=== PATIENT | male | born 1955 | race Native Hawaiian/Other Pacific Islander ===

== ENCOUNTER 2017-01-11 20:19 | Inpatient (IN) | payer SELFPAY ==
[2017-01-11] MEDS ORDERED: SODIUM CHLOR 0.9% 1000 ML INJ 1,000 ML IV SCH (20:20)
[2017-01-11 20:24] VITALS: BP 83/53; PULSE 63; RESP 18; TEMP 98.6; O2SAT 100
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
[2017-01-11] MEDS ORDERED: SODIUM CHLORIDE 0.9% FLUSH 5 ML FLUSH IV FLUSH PRN (20:30)
--- NOTE | 2017-01-11 20:43 | RADRPT ---
EXAM DATE/TIME: 01/11/2017 20:18 [facility] COMPARISON: No previous studies available for comparison. EXTERNAL COMPARISON : INDICATIONS : Syncope MEDICAL HISTORY : Cardiovascular disease. SURGICAL HISTORY : CABG. ENCOUNTER: Initial ACUITY: 1 day PAIN SCORE: 0/10 LOCATION: chest FINDINGS: No infiltrate, effusion or pneumothorax. Heart size within normal limits. Patient has had previous me kathrine sternotomy. CONCLUSION: No acute abnormality demonstrated. Alfonso Lee MD on January 11, 2017 at 20:41 Board Certified Radiologist. This report was verified electronically.
[2017-01-11 21:07] LABS: AUTOMATED NEUTROPHIL # 3.5 TH/MM3 (1.8-7.7); BASOPHIL % 0.9 % (0.0-2.0); EOSINOPHIL % 0.6 % (0.0-4.0); HEMO FLAGS DIFF FINAL; LYMPH % 21.2 % (9.0-44.0); LYMPHOCYTE # 1.1 TH/MM3 (1.0-4.8); MEAN CORPUSCULAR HEMOGLOBIN 35.9 PG (27.0-34.0); MEAN CORPUSCULAR HGB CONC 34.9 % (32.0-36.0); MONO % 8.2 % (0.0-8.0); NEUT % 69.1 % (16.0-70.0); PLATELET COUNT 138 TH/MM3 (150-450); RED BLOOD COUNT 3.59 MIL/MM3 (4.50-5.90)
--- NOTE | 2017-01-11 21:17 | PD ---
Physical Exam Narrative General: The patient is a thin-appearing male, drowsy on examination, slow to answer questions, blood pressure initially on my arrival is 89 systolic, however during further discussions with the patient the repeat blood pressure is 76 systolic.. Head and Neck exam: Head is normocephalic atraumatic. Eyes: EOMI, pupils are equal round and reactive to light. Nose: Midline septum with pink mucous membranes Mouth: Dentition unremarkable. Moist mucus membranes. Posterior oropharynx is not erythematous. No tonsillar hypertrophy. Uvula midline. Airway patent. Neck: No palpable lymphadenopathy. No nuchal rigidity. No thyromegaly. Cardiovascular: Regular rate and rhythm without murmurs, gallops, or rubs. Lungs: Clear to auscultation bilaterally. No wheezes, rhonchi, or rales. Abdomen: Soft, without tenderness to palpation in all 4 quadrants of the abdomen. No guarding, rebound, or rigidity. Normal bowel sounds are audible. No tenderness on palpation of McBurney's point. Extremities: No clubbing, cyanosis, or edema. Back: No costovertebral angle tenderness to palpation. Neurologic Exam: Cranial nerves 2-12 were intact on exam. Strength is 4/5 in all 4 extremities related to generalized weakness from hypotension. No sensory deficits noted. The patient is oriented to person, and time, however not place or situation. Skin Exam: No rash noted. Intact skin that is warm and dry. Data Data Last Documented VS Vital Signs Date Time Temp Pulse Resp B/P Pulse Ox O2 Delivery O2 Flow Rate FiO2 01/11/17 20:24 98.6 63 18 83/53 100 Orders Electrocardiogram (01/11/17 20:20) Ammonia (01/11/17 20:20) Complete Blood Count With Diff (01/11/17 20:20) Comprehensive Metabolic Panel (01/11/17 20:20) Creatine Kinase (Cpk) (01/11/17 20:20) Prothrombin Time / Inr (Pt) (01/11/17 20:20) Act Partial Throm Time (Ptt) (01/11/17 20:20) Troponin I (01/11/17 20:20) Thyroid Stimulating Hormone (01/11/17 20:20) Urinalysis - C+S If Indicated (01/11/17 20:20) Lactic Acid Sepsis Protocol (01/11/17 20:20) Blood Culture (01/11/17 20:20) Chest, Single Ap (01/11/17 20:20) Ct Brain W/O Iv Contrast(Rout) (01/11/17 20:20) Blood Glucose (01/11/17 20:20) Ecg Monitoring (01/11/17 20:20) Iv Access Insert/Monitor (01/11/17 20:20) Oximetry (01/11/17 20:20) Sodium Chloride 0.9% Flush (Ns Flush) (01/11/17 20:30) Sodium Chlor 0.9% 1000 Ml Inj (Ns 1000 M (01/11/17 20:20) Drug Screen, Random Urine (01/11/17 20:20) Alcohol (Ethanol) (01/11/17 20:20) Tylenol (Acetaminophen) (01/11/17 20:20) Salicylates (Aspirin) (01/11/17 20:20) Resp Blood Gas Venous (01/11/17 ) Ct Cerv Spine W/O Contrast (01/11/17 ) Labs Laboratory Tests Test 01/11/17 20:40 White Blood Count 5.0 TH/MM3 Red Blood Count 3.59 MIL/MM3 Hemoglobin 12.9 GM/DL Hematocrit 37.0 % Mean Corpuscular Volume 103.0 FL Mean Corpuscular Hemoglobin 35.9 PG Mean Corpuscular Hemoglobin 34.9 % Concent Red Cell Distribution Width 15.0 % Platelet Count 138 TH/MM3 Mean Platelet Volume 7.6 FL Neutrophils (%) (Auto) 69.1 % Lymphocytes (%) (Auto) 21.2 % Monocytes (%) (Auto) 8.2 % Eosinophils (%) (Auto) 0.6 % Basophils (%) (Auto) 0.9 % Neutrophils # (Auto) 3.5 TH/MM3 Lymphocytes # (Auto) 1.1 TH/MM3 Monocytes # (Auto) 0.4 TH/MM3 Eosinophils # (Auto) 0.0 TH/MM3 Basophils # (Auto) 0.0 TH/MM3 CBC Comment DIFF FINAL Differential Comment MDM Medical Record Reviewed: Yes Supervised Visit with YANELY: No Narrative Course During the course of the patients emergency department visit, the patients history, examination, and differential diagnosis were reviewed with the patient. The patient was initially seen by Dr. Escamilla. He requested that I in addition evaluate the patient is a patient was refusing all care. Upon my arrival to the room the patient reports that he does need to move his bowels. I explained that he would need to use a bedside commode due to his generalized weakness and hypotension. The patient was agreeable with this plan. I assisted him with the help of the nurse to the bedside commode. The patient had a loose stool was brown in color. No mucus or blood. On further questioning, the patient reports that he is traveling. He denies having any known destination. The patient reports that he does not want any additional evaluation, however the patient on examination is altered. The patient is unable to state why he thinks that everything will be fine. The patient's line of reasoning as flawed. I am concerned for his safety and his health based on his examination. I agree that at this point additional evaluation needs to be done as the patient at this point is not of sound mind to be able to refuse care and without care of the patient will likely get much sicker. When I explained to the patient that he does require additional evaluation as he seems to be confused, hypotensive and reports having shortness of breath although he denies chest pain currently. He reports "go ahead and waste your time. I don't care." Diagnosis Primary Impression: Altered mental status Qualified Code: R41.0 - Disorientation Additional Impressions: Hypotension Qualified Code: I95.9 - Hypotension, unspecified hypotension type Nausea, vomiting, and diarrhea Admitting Information Admitting Physician Requests: Admit Gifty Wood MD Jan 11, 2017 21:17
[2017-01-11 21:22] LABS: APTT (PATIENT) 24.1 SEC (24.3-30.1); INTERNATIONAL NORMALIZED RATIO 1.4 RATIO; PROTHROMBIN TIME - PATIENT 15.2 SEC (9.8-11.6)
[2017-01-11 21:28] VITALS: O2SAT 100
[2017-01-11 21:28] LABS: ANION GAP 11 MEQ/L (5-15)
[2017-01-11 21:37] LABS: ACETAMINOPHEN LESS THAN 2.0 MCG/ML (10.0-30.0); ALKALINE PHOSPHATASE 78 U/L (45-117); ALT (GPT) 10 U/L (12-78); AST (GOT) 43 U/L (15-37); BLOOD UREA NITROGEN 12 MG/DL (7-18); CHLORIDE 107 MEQ/L (98-107); CREATINE KINASE 362 U/L (39-308); GLOMERULAR FILTRATION RATE 64 ML/MIN (>89); POTASSIUM 3.1 MEQ/L (3.5-5.1); SODIUM (NA) 138 MEQ/L (136-145); TOTAL BILIRUBIN ADULT 0.5 MG/DL (0.2-1.0)
[2017-01-11 21:41] LABS: CALCIUM-PROTEIN CORRECTED 7.1 MG/DL (8.5-10.1)
[2017-01-11 21:55] LABS: BLOOD GAS VENOUS BASE EXCESS -4.8 mmol/L (-2-2); BLOOD GAS VENOUS HCO3 20 mmol/L (22-26); BLOOD GAS VENOUS O2 CONTENT 7.8 Vol % (9.0-17.0); BLOOD GAS VENOUS O2 HGB SAT 40 % (70-76); BLOOD GAS VENOUS PCO2 35 mmHg (44-48); BLOOD GAS VENOUS PO2 29 mmHg (35-40); BLOOD GAS VENOUS pH 7.37 (7.360-7.400); TEMP CORR TO 98.6
[2017-01-11 21:56] LABS: CRITICAL VALUE YES; DRAW SITE RN DRAW; FIO2 21 %; OXYGEN DEVICE ROOM AIR
[2017-01-11] MEDS ORDERED: CALCIUM GLUCONATE INJ 2 GM in DEXTROSE 5% IN WATER 100ML INJ 100 ML IV ONE ×2 (22:00)
[2017-01-11 22:03] LABS: CKMB 2.9 NG/ML (0.5-3.6)
[2017-01-11 22:15] VITALS: BP 95/57; PULSE 60; RESP 17; O2SAT 98
[2017-01-11 22:47] VITALS: BP 102/60; PULSE 58; RESP 18; O2SAT 98
[2017-01-11 23:00] LABS: LACTIC ACID GHOST NOT REPORTABLE
[2017-01-11 23:35] VITALS: BP 114/65; PULSE 61; RESP 19; O2SAT 98
[2017-01-12 00:45] LABS: CKMB 5.2 NG/ML (0.5-3.6)
[2017-01-12] MEDS ORDERED: POTASSIUM CHLORIDE 20 MEQ CONTROLLED RELEASE TAB PO ONE (02:00)
[2017-01-12] MEDS ORDERED: SODIUM CHLORIDE 0.9% FLUSH 10 ML FLUSH IV FLUSH PRN (02:00)
[2017-01-12] MEDS ORDERED: NALOXONE HCL 0.4 MG/ML AMP IV PRN (02:00)
--- NOTE | 2017-01-12 02:56 | HHI.HP ---
HPI Service [facility] Primary Care Physician Unknown Admission Diagnosis Altered Mental Status. Syncope. Diagnoses: Chief Complaint: vomiting, near syncope, hypotension Travel History International Travel<30 Days: No Contact w/Intl Traveler <30 Da: No Traveled to Known Affected Are: No Sepsis Criteria Criteria Outcome: Meets sepsis criteria History of Present Illness Written by ROLA Farias acting as scribe for [Juan Ramon] on 01/12/17 at 02: 28. 61 y/o male with a history of HTN, CAD, CABG, kidney stones and CVA was brought in to the ED by EMS after being found in his car confused, hypotensive and with vomit on himself. He was does not remember the events prior to coming to the hospital. The last thing he remembers is making coffee and getting in his car, he states he did not eat breakfast or lunch. He has been having chills and after he gets the chills he vomits and has associated heartburn. He states this has been going on for the past 3 months. He denies passing out, chest pain, palpitations, radiation with the heartburn. He states today he began to have diarrhea 4-5 times while at the hospital, and he had sharp abdominal pain with vomiting. Vomiting is coffee ground in color. Denies any black or red colored stools. He does have sob, and he is a smoker and he states he has been smoking more the past few weeks due to stress. No edema or pain in calf with the sob. He had a fall in May and had bleeding on the brain, and was instructed not to take any blood thinners or blood pressure medications. Only medication he does take is a OTC sleeping pill at night. Patient is from [facility] and has not followed up with a DrLucy since May. No local family members, he states he is just passing through. He started his trip here and he was in the car for 12 hrs. Patient is refusing any procedures or tests. The most he will do is blood test. He does not want an endoscopy, stress test, CTA. He states he does not need it and he would rather talk to his brother in law who is a computer salesperson retail and he will see a Dr. when he gets back to [facility] Dr. Jorge Jalloh at [facility] Review of Systems Except as stated in HPI: all other systems reviewed are Neg Past Family Social History Past Medical History HTN CAD CA kidney stones CVA Past Surgical History CABG Cystoscopy Allergies: Coded Allergies: UNOBTAINABLE (Unverified , 01/11/17) Active Ordered Medications Current Medications Medications (Trade) Dose Ordered Sig/Dillon Route Start Time Stop Time Status Last Admin (NS Flush) 2 ml UNSCH PRN IV FLUSH 01/12/17 02:00 (NS Flush) 2 ml BID IV FLUSH 01/12/17 09:00 Naloxone HCl 0.4 mg 0.4 mg UNSCH PRN IV 01/12/17 02:00 (KCl 20 Meq Premix Inj) 100 ml @ 50 mls/hr Q2H IV 01/12/17 02:00 01/12/17 05:59 Family History Mom: Kidney stones Social History Tobacco use: 1 1/2 PPD since age 18 Alcohol use: Occasionally Illicit drug use: Denies Physical Exam Vital Signs Vital Signs Date Time Temp Pulse Resp B/P Pulse Ox O2 Delivery O2 Flow Rate FiO2 01/11/17 23:35 61 19 114/65 98 Room Air 01/11/17 22:47 58 18 102/60 98 Room Air 01/11/17 22:15 60 17 95/57 98 Room Air 01/11/17 21:28 100 Nasal Cannula 2 01/11/17 20:24 98.6 63 18 83/53 100 Physical Exam GENERAL: This is a well-nourished, well-developed patient, in no apparent distress. Not very cooperative with care SKIN: No rashes, ecchymoses or lesions. Cool and dry. HEAD: Atraumatic. Normocephalic. EYES: Pupils equal round and reactive. Extraocular motions intact. ENT: Nose without bleeding, purulent drainage or septal hematoma. Airway patent. NECK: Trachea midline. No JVD or lymphadenopathy. CARDIOVASCULAR: Irregular rate and rhythm without murmurs, gallops, or rubs. RESPIRATORY: Clear to auscultation. Breath sounds equal bilaterally. No wheezes , rales, or rhonchi. GASTROINTESTINAL: Abdomen soft, non-tender, nondistended. No hepato-splenomegaly , or palpable masses. No guarding. MUSCULOSKELETAL: Extremities without clubbing, cyanosis, or edema. No joint tenderness, effusion, or edema noted. No calf tenderness. NEUROLOGICAL: Awake and alert. Motor and sensory grossly within normal limits. Normal speech. Laboratory Laboratory Tests Test 01/11/17 01/11/17 01/11/17 20:40 21:19 23:45 White Blood Count 5.0 Red Blood Count 3.59 Hemoglobin 12.9 Hematocrit 37.0 Mean Corpuscular Volume 103.0 Mean Corpuscular Hemoglobin 35.9 Mean Corpuscular Hemoglobin 34.9 Concent Red Cell Distribution Width 15.0 Platelet Count 138 Mean Platelet Volume 7.6 Neutrophils (%) (Auto) 69.1 Lymphocytes (%) (Auto) 21.2 Monocytes (%) (Auto) 8.2 Eosinophils (%) (Auto) 0.6 Basophils (%) (Auto) 0.9 Neutrophils # (Auto) 3.5 Lymphocytes # (Auto) 1.1 Monocytes # (Auto) 0.4 Eosinophils # (Auto) 0.0 Basophils # (Auto) 0.0 CBC Comment DIFF FINAL Differential Comment Prothrombin Time 15.2 Prothromb Time International 1.4 Ratio Activated Partial 24.1 Thromboplast Time Sodium Level 138 Potassium Level 3.1 Chloride Level 107 Carbon Dioxide Level 20.0 Anion Gap 11 Blood Urea Nitrogen 12 Creatinine 1.16 Estimat Glomerular Filtration 64 Rate Random Glucose 97 Lactic Acid Level 2.6 1.8 Calcium Level 6.2 Protein Corrected Calcium 7.1 Total Bilirubin 0.5 Aspartate Amino Transf 43 (AST/SGOT) Alanine Aminotransferase 10 (ALT/SGPT) Alkaline Phosphatase 78 Ammonia 49 Total Creatine Kinase 362 480 Creatine Kinase MB 2.9 5.2 Creatine Kinase MB % 0.8 1.1 Troponin I 0.02 0.02 Total Protein 5.1 Albumin 2.3 Thyroid Stimulating Hormone 1.860 3rd Gen Salicylates Level LESS THAN 1.7 Acetaminophen Level LESS THAN 2.0 Ethyl Alcohol Level 93 B-Type Natriuretic Peptide 79 Blood Gas Puncture Site RN DRAW Blood Gas Patient Temperature 98.6 Venous Blood pH 7.37 Venous Blood Partial Pressure 35 CO2 Venous Blood Partial Pressure 29 O2 Venous Blood HCO3 20 Venous Blood Oxygen Saturation 40 Venous Blood Oxygen Content 7.8 Venous Blood Base Excess -4.8 Oxygen Delivery Device ROOM AIR Blood Gas Inspired Oxygen 21 Date/Time Procedure Status Source Growth 01/11/17 20:40 Aerobic Blood Culture Received Blood Peripheral Pending 01/11/17 20:40 Anaerobic Blood Culture Received Blood Peripheral Pending Result Diagram: 01/11/17203901/11/172039 Imaging Last Impressions Chest X-Ray 01/11/172019 Signed Impressions: Service Date/Time: Wednesday, January 11, 2017 20:18 - CONCLUSION: No acute abnormality demonstrated. Alfonso Lee MD Assessment and Plan Problem List: (1) Hypocalcemia ICD Code: E83.51 Status: Acute (2) Vomiting ICD Code: R11.10 Status: Acute (3) Hypotension ICD Code: I95.9 Status: Acute (4) Hypokalemia ICD Code: E87.6 Status: Acute (5) Near syncope ICD Code: R55 Status: Acute Assessment and Plan 61 y/o male with a history of HTN, CAD, CABG, kidney stones and CVA was brought in to the ED by EMS after being found in his car confused, hypotensive and with vomit on himself. He was does not remember the events prior to coming to the hospital. Lactic acidosis suspected due to vomiting and volume loss, coffee ground, possible bleeding ulcer Lactic acid 2.6-->1.8, 1L ns given in ED -Protonix drip -Will order GI consult once patient agrees Hypokalemia, hypomagnesium and hypocalcemia, potassium 3.1, protein corrected ca 7.1, magnesium 1.4 -Supplementation ordered -Labs in a.m., replace as needed Dysrhythmia, with elevated d-dimer, will need to rule out PE if patient allows EKG reviewed and shows T wave inversion in lateral leads. D-dimer 2.4, CK 480, troponin 0.02 -CTA is ordered, patient is refusing -Serial EKGs and troponin -Monitor telemetry -Will order cardiology consult when patient agrees Near syncope, likely due to underlining dysrhythmias -Continue neuro checks DVT prophylaxis: SCDs Discussed Condition With Patient, RN and ED physician Problem Qualifiers (1) Hypotension: Qualified Code: I95.9 - Hypotension, unspecified hypotension type Nita Pena Jan 12, 2017 02:56 Thang Delatorre MD Jan 12, 2017 06:06
[2017-01-12 03:00] VITALS: BP 132/79; PULSE 71; RESP 18; O2SAT 99
[2017-01-12] MEDS: POTASSIUM CHLOR 20 MEQ PREMIX 100 ML IV SCH ×2 (03:54→04:00)
[2017-01-12] MEDS ORDERED: MAGNESIUM OXIDE 400 MG TAB PO ONE (04:15)
--- NOTE | 2017-01-12 05:06 | EKG ---
Date Performed: 01/11/2017 Time Performed: 20:22:36 PTAGE: 61 years EKG: SINUS BRADYCARDIA POSSIBLE LEFT ATRIAL ENLARGEMENT BORDERLINE RIGHT AXIS DEVIATION ANTERIOR MYOCARDIAL INFARCTION possible INFERIOR MYOCARDIAL INFARCTION Nonspecific T wave changes Prolonged Q T interval NO PREVIOUS TRACING DOCTOR: Joshua Fernandes Interpretating Date/Time 01/12/2017 05:06:03
[2017-01-12] MEDS ORDERED: PANTOPRAZOLE INJ 80 MG in SODIUM CHLORIDE 0.9% INJ 100 ML IV SCH (05:15)
[2017-01-12] MEDS ORDERED: PANTOPRAZOLE INJ 80 MG in SODIUM CHLORIDE 0.9% INJ 35 ML IV ONE (05:15)
[2017-01-12] MEDS: MAGNESIUM SULFATE 1 GM PREMIX 100 ML IV SCH ×2 (05:15→06:17)
[2017-01-12 05:17] VITALS: BP 117/68; PULSE 67; RESP 20; TEMP 98.8; O2SAT 98
[2017-01-12 07:17] LABS: STAT YES
--- NOTE | 2017-01-12 07:38 | EKG ---
Date Performed: 01/11/2017 Time Performed: 22:07:37 PTAGE: 61 years EKG: SINUS BRADYCARDIA POSSIBLE LEFT ATRIAL ENLARGEMENT ANTERIOR MYOCARDIAL INFARCTION INFERIOR MYOCARDIAL INFARCTION Prolonged QT interval. Nonspecific SCT wave changes. Compared to prior tracing no significant change PREVIOUS TRACING : 01/11/2017 20.22 DOCTOR: Joshua Fernandes Interpretating Date/Time 01/12/2017 07:38:13
[2017-01-12] MEDS ORDERED: SODIUM CHLORIDE 0.9% FLUSH 10 ML FLUSH IV FLUSH SCH (09:00)
--- NOTE | 2017-01-12 10:54 | HHI.DS ---
Discharge Summary Admission Date Jan 11, 2017 at 23:57 Admitting Diagnosis Altered Mental Status. Syncope. (1) Hypocalcemia ICD Code: E83.51 (2) Vomiting ICD Code: R11.10 (3) Hypotension ICD Code: I95.9 (4) Hypokalemia ICD Code: E87.6 (5) Near syncope ICD Code: R55 Brief History - From Admission Written by ROLA Farias acting as scribe for [Juan Ramon] on 01/12/17 at 02: 28. 61 y/o male with a history of HTN, CAD, CABG, kidney stones and CVA was brought in to the ED by EMS after being found in his car confused, hypotensive and with vomit on himself. He was does not remember the events prior to coming to the hospital. The last thing he remembers is making coffee and getting in his car, he states he did not eat breakfast or lunch. He has been having chills and after he gets the chills he vomits and has associated heartburn. He states this has been going on for the past 3 months. He denies passing out, chest pain, palpitations, radiation with the heartburn. He states today he began to have diarrhea 4-5 times while at the hospital, and he had sharp abdominal pain with vomiting. Vomiting is coffee ground in color. Denies any black or red colored stools. He does have sob, and he is a smoker and he states he has been smoking more the past few weeks due to stress. No edema or pain in calf with the sob. He had a fall in May and had bleeding on the brain, and was instructed not to take any blood thinners or blood pressure medications. Only medication he does take is a OTC sleeping pill at night. Patient is from [facility] and has not followed up with a Dr. since May. No local family members, he states he is just passing through. He started his trip here and he was in the car for 12 hrs. Patient is refusing any procedures or tests. The most he will do is blood test. He does not want an endoscopy, stress test, CTA. He states he does not need it and he would rather talk to his brother in law who is a lasting room machine operator and he will see a Dr. when he gets back to [facility] Dr. Jorge Jalloh at [facility] CBC/BMP: 01/11/17203901/11/172039 Significant Findings Laboratory Tests Test 01/11/17 01/11/17 01/11/17 20:40 21:19 23:45 Red Blood Count 3.59 MIL/MM3 (4.50-5.90) Hemoglobin 12.9 GM/DL (13.0-17.0) Hematocrit 37.0 % (39.0-51.0) Mean Corpuscular Volume 103.0 FL (80.0-100.0) Mean Corpuscular Hemoglobin 35.9 PG (27.0-34.0) Platelet Count 138 TH/MM3 (150-450) Monocytes (%) (Auto) 8.2 % (0.0-8.0) Prothrombin Time 15.2 SEC (9.8-11.6) Activated Partial 24.1 SEC Thromboplast Time (24.3-30.1) Potassium Level 3.1 MEQ/L (3.5-5.1) Carbon Dioxide Level 20.0 MEQ/L (21.0-32.0) Estimat Glomerular Filtration 64 ML/MIN (>89) Rate Lactic Acid Level 2.6 mmol/L (0.4-2.0) Calcium Level 6.2 MG/DL (8.5-10.1) Protein Corrected Calcium 7.1 MG/DL (8.5-10.1) Aspartate Amino Transf 43 U/L (15-37) (AST/SGOT) Alanine Aminotransferase 10 U/L (12-78) (ALT/SGPT) Ammonia 49 MCMOL/L (11-32) Total Creatine Kinase 362 U/L 480 U/L (39-308) (39-308) Total Protein 5.1 GM/DL (6.4-8.2) Albumin 2.3 GM/DL (3.4-5.0) Salicylates Level LESS THAN 1.7 MG/DL (2.8-20.0) Acetaminophen Level LESS THAN 2.0 MCG/ML (10.0-30.0) Ethyl Alcohol Level 93 MG/DL (0-5) D-Dimer Quantitative (PE/DVT) 2.40 MG/L FEU (0.00-0.50) Venous Blood Partial Pressure 35 mmHg (44-48) CO2 Venous Blood Partial Pressure 29 mmHg (35-40) O2 Venous Blood HCO3 20 mmol/L (22-26) Venous Blood Oxygen Saturation 40 % (70-76) Venous Blood Oxygen Content 7.8 Vol % (9.0-17.0) Venous Blood Base Excess -4.8 mmol/L (-2-2) Magnesium Level 1.4 MG/DL (1.5-2.5) Creatine Kinase MB 5.2 NG/ML (0.5-3.6) Tobi Iglesias DO Jan 12, 2017 10:54
== END 2017-01-12 07:18 | disposition left against medical advice (07) | DRG 315 ==
LOC: NEPE 20:19 → INTOOBSV 23:57 → NEDA 23:57 → NEPFCDU 01-12 04:13 → OBSVTOIN 01-12 07:04 → UNDODISIN 01-12 07:18
PROVIDERS: ADMIT Internal Medicine; ATTEND Internal Medicine
DX: I95.9 Hypotension, unspecified (principal); E87.2 Acidosis; E83.51 Hypocalcemia; I10 Essential (primary) hypertension; R41.82 Altered mental status, unspecified; I25.10 Atherosclerotic heart disease of native coronary artery without angina pectoris; F17.210 Nicotine dependence, cigarettes, uncomplicated; E87.6 Hypokalemia; R19.7 Diarrhea, unspecified; R06.02 Shortness of breath; E83.42 Hypomagnesemia; I49.9 Cardiac arrhythmia, unspecified; I25.2 Old myocardial infarction; Z86.73 Personal history of transient ischemic attack (TIA), and cerebral infarction without residual deficits; Z95.1 Presence of aortocoronary bypass graft
CPT/HCPCS: 71010; 80053; 80307; 82140; 82550; 82552; 82805; 83605; 83735; 83880; 84443; 84484; 85025; 85379; 85610; 85730; 87040; 93005; 96361; 96374; C9113; J0610; J3475; J3480; J7030

== ENCOUNTER 2017-01-12 12:28 | Observation (INO) | payer SELFPAY ==
--- NOTE | 2017-01-12 12:42 | PD ---
Physical Exam Date Seen by Provider: Jan 12, 2017 Time Seen by Provider: 12:41 Narrative 61 YOWM C/O SOB AND CP. ALSO LBP. JUST SEEN EARLIER TODAY AND D/C'ED. LAST ALCOHOL SAT. PAIN 8/10 IN THE CHEST WITH MOVEMENT. VS REVIEWED AWAITING BED PLACEMENT MDM Supervised Visit with YANELY: No Condition: Stable Dejan Wilson Jan 12, 2017 12:42
[2017-01-12 14:00] VITALS: BP 133/76; PULSE 63; PULSE 64; RESP 18; O2SAT 96; O2SAT 98
[2017-01-12] MEDS ORDERED: SODIUM CHLORIDE 0.9% FLUSH 10 ML FLUSH IVF PRN (14:15)
[2017-01-12 15:25] LABS: AUTOMATED NEUTROPHIL # 6.2 TH/MM3 (1.8-7.7); BASOPHIL # 0.1 TH/MM3 (0-0.2); BASOPHIL % 0.7 % (0.0-2.0); EOSINOPHIL % 0.1 % (0.0-4.0); HEMATOCRIT 43.4 % (39.0-51.0); HEMO FLAGS DIFF FINAL; LYMPH % 12.4 % (9.0-44.0); MEAN CELL VOLUME 103.2 FL (80.0-100.0); MEAN CORPUSCULAR HEMOGLOBIN 36.3 PG (27.0-34.0); MEAN CORPUSCULAR HGB CONC 35.2 % (32.0-36.0); MONO % 7.8 % (0.0-8.0); PLATELET COUNT 151 TH/MM3 (150-450); RED CELL DISTRIBUTION WIDTH 15.4 % (11.6-17.2); WHITE BLOOD COUNT 7.8 TH/MM3 (4.0-11.0)
[2017-01-12 15:34] LABS: APTT (PATIENT) 27.6 SEC (24.3-30.1); INTERNATIONAL NORMALIZED RATIO 1.3 RATIO; PROTHROMBIN TIME - PATIENT 14.7 SEC (9.8-11.6)
[2017-01-12 15:55] LABS: ANION GAP 14 MEQ/L (5-15); BICARBONATE 21.4 MEQ/L (21.0-32.0); BLOOD UREA NITROGEN 15 MG/DL (7-18); CHLORIDE 106 MEQ/L (98-107); CREATINE KINASE 654 U/L (39-308); GLOMERULAR FILTRATION RATE 53 ML/MIN (>89); MAGNESIUM 1.5 MG/DL (1.5-2.5); SODIUM (NA) 141 MEQ/L (136-145)
--- NOTE | 2017-01-12 15:57 | RADRPT ---
EXAM DATE/TIME: 01/12/2017 14:30 [facility] COMPARISON: CHEST SINGLE AP, January 11, 2017, 20:18. INDICATIONS : Chest pain, short of breath. MEDICAL HISTORY : None. SURGICAL HISTORY : CABG. ENCOUNTER: Initial ACUITY: 1 day PAIN SCORE: 5/10 LOCATION: Bilateral chest FINDINGS: Median sternotomy wires are noted status post cardiac surgery. The heart is stable. The pulmonary v ascular pattern is normal. The lungs are clear. CONCLUSION: No acute focal pulmonary infiltrate or pulmonary vascular congestion. Maximiliano Hughes MD on January 12, 2017 at 15:30 Board Certified Radiologist. This report was verified electronically.
[2017-01-12 15:59] LABS: POTASSIUM 4.6 MEQ/L (3.5-5.1)
[2017-01-12 16:00] VITALS: BP 132/78; PULSE 78; RESP 18; O2SAT 97
[2017-01-12 16:21] VITALS: BP_SYST 139; BP_SYST 140; BP_DIAS 86; BP_DIAS 87; PULSE 65; RESP 18; O2SAT 98
[2017-01-12 16:21] LABS: CKMB 6.9 NG/ML (0.5-3.6)
--- NOTE | 2017-01-12 18:10 | PD ---
HPI Chief Complaint: Pain: Acute or Chronic Time Seen by Provider: 13:15 Travel History International Travel<30 days: No Contact w/Intl Traveler<30days: No Traveled to known affect area: No History of Present Illness HPI 61-year-old male came to the emergency room with history of shortness of breath and some back pain after he took a 2 hour walk on the beach. Patient is from [place] and his here and some business. He is staying in a hotel and went out to walk on the beach this morning. He says after 2 hours he started getting short of breath which is unusual for him and hence he came into the emergency room. The significant past history is patient was in this emergency department 12 hours ago brought in as altered mental status and hypotension. He had required some volume resuscitation which brought the blood pressure up as well as his mental status. The intention at that time was to admit him but patient argued and left AMA. Right now patient says that he was brought in by force by the police and ambulance because he parked in front of somebody's front lawn unknowingly since it was raining very hard. He does not recall the altered mental status or the hypertension history. Patient has significant past medical history of CABG. He is not on any Plavix or aspirin since he had head injury and head bleed one year ago. These medications were stopped. He continues to smoke and he knows it is bad for him. Patient says that he had a cardiac catheterization done by his family health nurse practitioner in [facility] in July of this year and as per him no blockage was found. His vital signs were stable. [facility] Past Medical History Narrative Medical List of his past medical, surgical, social and family history was reviewed from the nursing note. Medical History: Denies Significant Hx Blood Disorders: No Heart Rhythm Problems: No Cancer: No Cardiovascular Problems: Yes High Cholesterol: Yes Chemotherapy: No Chest Pain: Yes Congestive Heart Failure: No Diminished Hearing: No Endocrine: No Genitourinary: Yes (kidney stones) Immune Disorder: No Musculoskeletal: No Neurologic: No Psychiatric: No Reproductive: No Respiratory: No Radiation Therapy: No Past Surgical History Surgical History: Unable to Obtain Cardiac Surgery: Yes Social History Alcohol Use: No Tobacco Use: Yes Substance Use: No Allergies-Medications (Allergen,Severity, Reaction): Coded Allergies: Unable to Assess (Unverified Allergy, Unknown, 01/12/17) Comments None Reported Meds & Prescriptions Reported Meds & Active Scripts Active Active Prescriptions or Reported Medications Unobtainable Narrative Medication Awaiting for the nurse to do the medical reconciliation. Review of Systems Except as stated in HPI: all other systems reviewed are Neg Physical Exam Narrative GENERAL: Awake, alert, anxious, no obvious distress SKIN: Focused skin assessment warm/dry. HEAD: Atraumatic. Normocephalic. EYES: Pupils equal and round. No scleral icterus. No injection or drainage. ENT: No nasal bleeding or discharge. Mucous membranes pink and moist. NECK: Trachea midline. No JVD. CARDIOVASCULAR: Regular rate and rhythm. No murmur appreciated. RESPIRATORY: No accessory muscle use. Clear to auscultation. Breath sounds equal bilaterally. GASTROINTESTINAL: Abdomen soft, non-tender, nondistended. Hepatic and splenic margins not palpable. MUSCULOSKELETAL: No obvious deformities. No clubbing. No cyanosis. No edema. NEUROLOGICAL: Awake and alert. No obvious cranial nerve deficits. Motor grossly within normal limits. Normal speech. PSYCHIATRIC: Appropriate mood and affect; insight and judgment normal. Data Data Last Documented VS Vital Signs Date Time Temp Pulse Resp B/P Pulse Ox O2 Delivery O2 Flow Rate FiO2 01/12/17 16:21 65 18 140/86 98 Room Air 139/87 01/11/17 19:45 21 Orders Electrocardiogram (01/12/17 12:49) Basic Metabolic Panel (Bmp) (01/12/17 14:06) Ckmb (Isoenzyme) Profile (01/12/17 14:06) Complete Blood Count With Diff (01/12/17 14:06) Magnesium (Mg) (01/12/17 14:06) Prothrombin Time / Inr (Pt) (01/12/17 14:06) Act Partial Throm Time (Ptt) (01/12/17 14:06) Troponin I (01/12/17 14:06) Chest, Single Ap (01/12/17 14:06) Ecg Monitoring (01/12/17 14:06) Bilateral Bp Monitoring (01/12/17 14:06) Iv Access Insert/Monitor (01/12/17 14:06) Oximetry (01/12/17 14:06) Oxygen Administration (01/12/17 14:06) Sodium Chloride 0.9% Flush (Ns Flush) (01/12/17 14:15) CKMB (01/12/17 14:50) CKMB% (01/12/17 14:50) Admit Order (Ed Use Only) (01/12/17 17:30) Labs Laboratory Tests Test 01/12/17 14:50 White Blood Count 7.8 TH/MM3 Red Blood Count 4.20 MIL/MM3 Hemoglobin 15.3 GM/DL Hematocrit 43.4 % Mean Corpuscular Volume 103.2 FL Mean Corpuscular Hemoglobin 36.3 PG Mean Corpuscular Hemoglobin 35.2 % Concent Red Cell Distribution Width 15.4 % Platelet Count 151 TH/MM3 Mean Platelet Volume 8.1 FL Neutrophils (%) (Auto) 79.0 % Lymphocytes (%) (Auto) 12.4 % Monocytes (%) (Auto) 7.8 % Eosinophils (%) (Auto) 0.1 % Basophils (%) (Auto) 0.7 % Neutrophils # (Auto) 6.2 TH/MM3 Lymphocytes # (Auto) 1.0 TH/MM3 Monocytes # (Auto) 0.6 TH/MM3 Eosinophils # (Auto) 0.0 TH/MM3 Basophils # (Auto) 0.1 TH/MM3 CBC Comment DIFF FINAL Differential Comment Prothrombin Time 14.7 SEC Prothromb Time International 1.3 RATIO Ratio Activated Partial 27.6 SEC Thromboplast Time Sodium Level 141 MEQ/L Potassium Level 4.6 MEQ/L Chloride Level 106 MEQ/L Carbon Dioxide Level 21.4 MEQ/L Anion Gap 14 MEQ/L Blood Urea Nitrogen 15 MG/DL Creatinine 1.37 MG/DL Estimat Glomerular Filtration 53 ML/MIN Rate Random Glucose 76 MG/DL Calcium Level 8.1 MG/DL Magnesium Level 1.5 MG/DL Total Creatine Kinase 654 U/L Creatine Kinase MB 6.9 NG/ML Creatine Kinase MB % 1.1 % Troponin I LESS THAN 0.02 NG/ML MDM Medical Decision Making Medical Screen Exam Complete: Yes Emergency Medical Condition: Yes Medical Record Reviewed: Yes Interpretation(s) Twelve-lead EKG was reviewed by me. Normal sinus rhythm, normal axis, T-wave inversion in the septal and lateral leads. Heart rate of 67 bpm. These changes are similar to the EKG done less than 24 hour ago Differential Diagnosis ACS, congestive heart failure, dysrhythmia Narrative Course 5 PM blood test results of back and within acceptable limits. Patient has significant cardiac history and continues to be a smoker. I read the charting from the physician last night who saw him and his history was very concerning. Patient left AMA. I explained this to the patient and explained that he should be kept at least for 24 hours observation. Patient has agreed. Procedures EKG Prior to Arrival: No Diagnosis Primary Impression: Shortness of breath Additional Impression: Back pain Qualified Code: M54.6 - Acute midline thoracic back pain Admitting Information Admitting Physician Requests: Observation Scripts Unable to Obtain Active Prescriptions or Reported Meds Condition: Shan Arango MD Jan 12, 2017 18:10
[2017-01-12 18:15] VITALS: BP 140/78; PULSE 80; RESP 18; O2SAT 97
[2017-01-12] MEDS ORDERED: SODIUM CHLOR 0.9% 1000 ML INJ 1,000 ML IV SCH (18:27)
[2017-01-12] MEDS ORDERED: ONDANSETRON HCL 4 MG/2 ML VIAL IVP PRN (18:30)
[2017-01-12] MEDS ORDERED: MAGNESIUM HYDROXIDE SUSP 30 ML CUP PO PRN (18:30)
[2017-01-12] MEDS ORDERED: ACETAMINOPHEN 325 MG TAB PO PRN (18:30)
--- NOTE | 2017-01-12 18:33 | HHI.HP ---
[facility] Primary Care Physician No Primary Care Physician Admission Diagnosis shortness of breath Diagnoses: (1) Shortness of breath Diagnosis: Principal (2) Near syncope Diagnosis: Principal (3) Vomiting Diagnosis: Principal (4) Hypotension Diagnosis: Secondary (5) Hypocalcemia Diagnosis: Secondary (6) Hypokalemia Diagnosis: Secondary (7) Altered mental status Diagnosis: Principal (8) Nausea, vomiting, and diarrhea Diagnosis: Secondary (9) Back pain Diagnosis: Secondary Chief Complaint: Chest pain with associated shortness of breath Travel History International Travel<30 Days: No Contact w/Intl Traveler <30 Da: No Traveled to Known Affected Are: No History of Present Illness Mr. Pardo is a 61-year-old male patient who presented to the ED this afternoon after leaving AMA this early this morning. Patient has a known history of hypertension, CAD, CABG, kidney stones and CVA who presented to the ED today with complaints of chest pain with associated shortness of breath. Patient states [place] the beach and noticed increasing shortness of breath and sudden anterior chest pain. Pain was rated a 6/10, tight in nature, lasted roughly a few minutes and then subsided when patient sat down to rest. Does state once pain subsided he experienced pain in his lower back. Pain is aggravated with increased activity. Patient does state that this pain was similar to his [place] in 2013. Denies any current chest pain. Denies any associated symptoms including nausea, vomiting or dizziness. Does admit to recent fever, chills and heartburn. States that he has been having heartburn for several months. Denies any recent cough, headache, abdominal pain or dysuria. Last emesis was early this am before leaving AMA. Has not ate or drank anything today. Denies any recent hematochezia. Admits to current tobacco use. Admits to occasional alcohol use. Denies any illicit drug use. Patient does state he has not taken any prescribed medications since May of this year, believing he does not need them. Patient initially presented to the ED for the first time this morning with altered mental status, confusion and hypotension. He left AMA after refusing further work-up, imaging and treatment. Patient is from [place] and has traveled here via vehicle over 12 hours. Work-up was performed this morning with elevated d-dimer, 2.4. Patient is currently refusing any "special imaging or procedures" and does not want any further work up. He continues to state his desire to consult with his doctors and family back home. Supposedly patient had fallen at home in May of this year and was admitted to the hospital for a brain bleed. Review of Systems Constitutional: COMPLAINS OF: Fatigue, Chills Ears, nose, mouth, throat: DENIES: Hearing loss, Vertigo, Nasal discharge Respiratory: COMPLAINS OF: Shortness of breath, DENIES: Snoring Cardiovascular: COMPLAINS OF: Chest pain, Syncope, Orthopnea, DENIES: Palpitations, Lower Extremity Edema Gastrointestinal: DENIES: Abdominal pain, Black stools, Constipation, Diarrhea , Nausea, Vomiting Musculoskeletal: COMPLAINS OF: Joint pain Integumentary: DENIES: Abnormal pigmentation Neurologic: DENIES: Headache Past Family Social History Past Medical History HTN CAD [place] Kidney stones CVA Past Surgical History CABG 2013 Cystoscopy Reported Medications Denies taking any medications. Allergies: Coded Allergies: Unable to Assess (Unverified Allergy, Unknown, 01/12/17) Active Ordered Medications Current Medications Medications (Trade) Dose Ordered Sig/Dillon Route Start Time Stop Time Status Last Admin (NS Flush) 2 ml UNSCH PRN IVF 01/12/17 14:15 Family History Maternal family medical history significant for kidney stones. Denies any significant family medical history of cardiovascular disease or cancer. Social History Tobacco use: 1 1/2 PPD since age 18 Alcohol use: Occasionally Illicit drug use: Denies Physical Exam Vital Signs Vital Signs Date Time Temp Pulse Resp B/P Pulse Ox O2 Delivery O2 Flow Rate FiO2 01/12/17 16:21 65 18 140/86 98 Room Air 139/87 01/12/17 16:13 64 18 01/12/17 14:00 64 18 133/76 98 Room Air 01/12/17 14:00 98 Room Air 01/12/17 14:00 63 18 133/76 96 Room Air Physical Exam GENERAL: Well-developed patient, in no apparent distress. On RA. SKIN: No rashes, ecchymoses or lesions. Warm and dry. HEENT: Atraumatic. Normocephalic. No temporal or scalp tenderness. Pupils equal round and reactive. Extraocular motions intact. No scleral icterus. No injection or drainage. Nose without bleeding. Airway patent. NECK: Trachea midline. No JVD. Supple. CARDIOVASCULAR: Regular rate and rhythm. No murmurs, gallops, or rubs. S1 and S2 present. No S3, S4. RESPIRATORY: Clear to auscultation. Breath sounds equal bilaterally. No wheezes , rales, or rhonchi. GASTROINTESTINAL: Abdomen soft, non-tender, nondistended. No guarding. MUSCULOSKELETAL: Extremities without clubbing, cyanosis, or edema. No joint tenderness, effusion, or edema noted. NEUROLOGICAL: Awake and alert. Cranial nerves II through XII intact. Motor and sensory grossly within normal limits. Five out of 5 muscle strength in all muscle groups. Normal speech. Poor logical thought process Insight and judgment incredibly poor mood and behavior are completely inappropriate Laboratory Laboratory Tests Test 01/12/17 14:50 White Blood Count 7.8 Red Blood Count 4.20 Hemoglobin 15.3 Hematocrit 43.4 Mean Corpuscular Volume 103.2 Mean Corpuscular Hemoglobin 36.3 Mean Corpuscular Hemoglobin 35.2 Concent Red Cell Distribution Width 15.4 Platelet Count 151 Mean Platelet Volume 8.1 Neutrophils (%) (Auto) 79.0 Lymphocytes (%) (Auto) 12.4 Monocytes (%) (Auto) 7.8 Eosinophils (%) (Auto) 0.1 Basophils (%) (Auto) 0.7 Neutrophils # (Auto) 6.2 Lymphocytes # (Auto) 1.0 Monocytes # (Auto) 0.6 Eosinophils # (Auto) 0.0 Basophils # (Auto) 0.1 CBC Comment DIFF FINAL Differential Comment Prothrombin Time 14.7 Prothromb Time International 1.3 Ratio Activated Partial 27.6 Thromboplast Time Sodium Level 141 Potassium Level 4.6 Chloride Level 106 Carbon Dioxide Level 21.4 Anion Gap 14 Blood Urea Nitrogen 15 Creatinine 1.37 Estimat Glomerular Filtration 53 Rate Random Glucose 76 Calcium Level 8.1 Magnesium Level 1.5 Total Creatine Kinase 654 Creatine Kinase MB 6.9 Creatine Kinase MB % 1.1 Troponin I LESS THAN 0.02 Result Diagram: 01/12/17 1450 01/12/17 1450 Imaging Last Impressions Chest X-Ray 01/12/17 1406 Signed Impressions: Service Date/Time: Thursday, January 12, 2017 14:30 - CONCLUSION: No acute focal pulmonary infiltrate or pulmonary vascular congestion. Maximiliano Hughes MD Assessment and Plan Problem List: (1) Back pain ICD Code: M54.9 Status: Acute (2) Shortness of breath ICD Code: R06.02 Status: Acute (3) Near syncope ICD Code: R55 Status: Acute (4) Vomiting ICD Code: R11.10 Status: Acute (5) Hypotension ICD Code: I95.9 Status: Acute (6) Hypocalcemia ICD Code: E83.51 Status: Acute (7) Hypokalemia ICD Code: E87.6 Status: Acute (8) Altered mental status ICD Code: R41.82 Status: Acute (9) Nausea, vomiting, and diarrhea ICD Code: R11.2 Status: Acute Assessment and Plan Mr. Pardo is a 61-year-old male patient who presented to the ED this afternoon after leaving AMA this early this morning. Patient has a known history of hypertension, CAD, CABG, kidney stones and CVA who presented to the ED today with complaints of chest pain with associated shortness of breath. Patient initially presented to the ED for the first time this morning with altered mental status, confusion and hypotension. He left AMA after refusing further work-up, imaging and treatment. Patient is from [place] and has traveled here via vehicle over 12 hours. Work-up was performed this morning with elevated d- dimer, 2.4. Patient is currently refusing any "special imaging or procedures" and does not want any further work up. He continues to state his desire to consult with his doctors and family back home. Supposedly patient had fallen at home in May of this year and was admitted to the hospital for a brain bleed. Dyspnea suspect secondary elevated d-dimer, will need to rule out PE Chest pain suspect secondary to above - CTA is ordered, patient is continuing to refuse imaging and further work up. Educated on importance. - Troponin less than 0.02. EKG reviewed showing T wave inversion in lateral leads. D-dimer 2.4. - Continue cardiac telemetry. - Per patient, last cardiac cath was performed in July of this year and unremarkable. Acute kidney injury suspect secondary to dehydration and minimal PO intake - Creatinine 1.37, increased from 1.16 last evening. - Status post 4 L NS replacement last evening. - Will place on IVF, NS at 75 ml/hr. - Monitor intake and output. Recheck BMP in am. Follow. - CXR reviewed, showing no acute focal pulmonary infiltrate or pulmonary vascular congestion. Hypertension, chronic: Was previously hypotensive this am. Controlled at this time. Will monitor BP. DVT prophylaxis: SCDs Malignant noncompliant since patient left AGAINST MEDICAL ADVICE earlier this day came back into the hospital and now refusing all treatment here We'll monitor. Have suggested he consider leaving AGAINST MEDICAL ADVICE since he does not want anymore treatment The exam, history, and the medical decision-making described in the above note were completed with the assistance of the mid-level provider. I reviewed and agree with the findings presented. I attest that I had a [id number] encounter with the patient on the same day, and personally performed and documented my assessment and findings in the medical record. Code Status Full code Discussed Condition With ER physician RN patient and nurse practitioner Problem Qualifiers (1) Back pain: Qualified Code: M54.6 - Acute midline thoracic back pain Em Daniels Jan 12, 2017 18:33 Valente Pompa DO Jan 12, 2017 19:01
[2017-01-12] MEDS ORDERED: IOHEXOL 350 MG/ML 10 ML VIAL (for RAD DIAG) IV ONE (19:16)
[2017-01-12 20:02] VITALS: BP 134/77; PULSE 65; RESP 18; TEMP 98.5; O2SAT 100
[2017-01-12] MEDS ORDERED: DOCUSATE SODIUM 50 MG/SENNA 8.6 MG TAB PO SCH (21:00)
--- NOTE | 2017-01-12 21:15 | PD.AMA ---
Against Medical Advice Note Diagnosis: (1) Shortness of breath Discharge Disposition: Against Medical Advice Pt Condition on Discharge: Fair AMA Statement Patient Ko Pardo has decided to leave the hospital against medical advice. This patient has the capacity to refuse care and understands the risks of leaving, including permanent disability and/or , and has had an opportunity to ask questions about his condition. The patient has been informed that he may return for care at any time, and follow up has been arranged/ advised. Patient is A&Ox 3 and has been provided the risks of leaving the hospital against medical advice. Patient states he is planning to get on a plane tomorrow and go home to [place]. Nita Pena Jan 12, 2017 21:15
--- NOTE | 2017-01-14 09:02 | EKG ---
Date Performed: 01/12/2017 Time Performed: 12:55:52 PTAGE: 61 years EKG: Sinus rhythm POSSIBLE LEFT ATRIAL ENLARGEMENT BORDERLINE RIGHT AXIS DEVIATION INFERIOR MYOCARDIAL INFARCTION MACIEJ ED T-WAVE ABNORMALITY, CONSIDER ANTEROLATERAL ISCHEMIA ABNORMAL ECG PREVIOUS TRACING : 01/11/2017 22.07 Compared to prior tracing no significant change DOCTOR: Rocco Barnett Interpretating Date/Time 01/14/2017 08:57:14
== END 2017-01-12 22:04 | disposition left against medical advice (07) ==
LOC: NEPE 12:28 → NEDA 17:32 → NEPHCDU 19:38
PROVIDERS: ADMIT Hospitalist; ATTEND Hospitalist
DX: M54.6 Pain in thoracic spine (principal); R06.02 Shortness of breath; I10 Essential (primary) hypertension; I25.10 Atherosclerotic heart disease of native coronary artery without angina pectoris; I95.9 Hypotension, unspecified; R55 Syncope and collapse; N17.9 Acute kidney failure, unspecified; E83.51 Hypocalcemia; E87.6 Hypokalemia; R94.31 Abnormal electrocardiogram [ECG] [EKG]; E78.00 Pure hypercholesterolemia, unspecified; F17.200 Nicotine dependence, unspecified, uncomplicated; I25.2 Old myocardial infarction; Z86.73 Personal history of transient ischemic attack (TIA), and cerebral infarction without residual deficits; Z87.442 Personal history of urinary calculi; Z91.19 Patient's noncompliance with other medical treatment and regimen; Z95.1 Presence of aortocoronary bypass graft
CPT/HCPCS: 71010; 80048; 82550; 82552; 83735; 84484; 85025; 85610; 85730; 93005; 99285; G0378; Q9967